=== PATIENT | female | born 1960 | race Caucasian/White ===

== ENCOUNTER 2018-06-27 11:43 | Emergency (ER) | payer MEDICAID ==
[~2018-06-27] VITALS: Ht 160 cm; Wt 117.9 kg
[~2018-06-27 11:43] MED LIST: ASPI81CT95 PO; FERR325E14 PO; GLU500 PO; HYDR25TA32 PO; INSU100S10 SUBQ; LISI-420 PO; LISI20TA2 PO
[2018-06-27 12:04] VITALS: BP 164/64
--- NOTE | 2018-06-27 12:44 | NUR ---
PT AMBULATES TO BED 2
--- NOTE | 2018-06-27 12:58 | NUR ---
PT. CAME INTO THE ED DUE TO R FOOT PAIN X 1 WEEK. PT. HAS 9/10 THROBBING PAIN ON R FOOT S/P FROZEN MEAT FALLING ON HER FOOT ONE WEEK AGO. PT. HAS CAP REFILL LESS THAN 3 SECONDS, SENSATION INTACT. NO BRUISING OR SWELLING NOTED AT THIS TIME. PT ABLE TO AMBULATE AT THIS TIME. ER MD NOTIFIED. SAFETY PRECAUTIONS IMPLEMENTED . FAMILY MEMBER AT BEDSIDE. WILL CONTINUE TO MONITOR.
--- NOTE | 2018-06-27 13:58 | NUR ---
PT. RESTING IN BED, RR EVEN AND UNLABORED. BED IN LOWEST POSITION. WILL CONTINUE TO MONITOR.
[2018-06-27 14:34] VITALS: BP 151/63
== END 2018-06-27 14:34 | disposition home or self-care (01) ==
LOC: MED 11:43
DX: S92.531A Displaced fracture of distal phalanx of right lesser toe(s), initial encounter for closed fracture (principal); E11.9 Type 2 diabetes mellitus without complications; I10 Essential (primary) hypertension; Z79.4 Long term (current) use of insulin; Z79.82 Long term (current) use of aspirin; Z79.899 Other long term (current) drug therapy; W20.8XXA Other cause of strike by thrown, projected or falling object, initial encounter; Y93.89 Activity, other specified; Y92.89 Other specified places as the place of occurrence of the external cause; Y99.8 Other external cause status
CPT/HCPCS: 73630; 99283; 99284

== ENCOUNTER 2019-02-13 14:45 | Emergency (ER) | payer MEDICAID ==
[~2019-02-13] VITALS: Ht 152.4 cm; Wt 95.3 kg
[2019-02-13 15:10] VITALS: BP 164/59
--- NOTE | 2019-02-13 15:14 | NUR ---
PT AMBULATED TO BED 4
--- NOTE | 2019-02-13 15:28 | NUR ---
PATIENT PRESENTS TO ED WITH C/O BILAT HIP PAIN RADIATING DOWN R LEG WORSENING TODAY /10 SHARP, CONTINUOUS. DENIES INJURY, ABLE TO AMBULATE WITH STEADY GAIT. HX---DM, HTN . VSS; PATIENT POSITIONED FOR COMFORT; HOB ELEVATED; BEDRAILS UP X2; BED DOWN. ER MD MADE AWARE OF PT STATUS.
--- NOTE | 2019-02-13 15:50 | NUR ---
Patient being evaluated by physician at bedside.
--- NOTE | 2019-02-13 16:04 | NUR ---
PT IS OFF UNIT FOR XRAY.
--- NOTE | 2019-02-13 16:15 | NUR ---
PT IS BACK FROM X-RAY
[2019-02-13] MEDS ORDERED: KETOROLAC 30 MG/ML VIAL IM ONE (16:20)
[2019-02-13 16:55] VITALS: BP 148/58
--- NOTE | 2019-02-13 16:55 | NUR ---
PT STATED FEELING BETTER, VSS, Written and verbal after care instructions given and explained. Rx of NAPROXEN given. Patient educated on indication of medication including possible reaction and side effects. Opportunity to ask questions provided and answered. ID band removed. Patient advised to follow up with PMD.
== END 2019-02-13 16:55 | disposition home or self-care (01) ==
LOC: MED 14:45
DX: M51.16 Intervertebral disc disorders with radiculopathy, lumbar region (principal); E11.9 Type 2 diabetes mellitus without complications; I10 Essential (primary) hypertension; Z79.4 Long term (current) use of insulin; Z79.82 Long term (current) use of aspirin; Z79.899 Other long term (current) drug therapy
CPT/HCPCS: 72110; 96372; 99283; J1885

== ENCOUNTER 2020-04-25 12:22 | Emergency (ER) | payer MEDICAID ==
[~2020-04-25] VITALS: Ht 167.6 cm; Wt 91.2 kg
[2020-04-25 12:29] VITALS: BP 175/92
--- NOTE | 2020-04-25 12:33 | NUR ---
PT INSTRUCTED TO WAIT IN LOBBY
[2020-04-25] MEDS ORDERED: KETOROLAC 30 MG/ML VIAL IM ONE (13:20)
[2020-04-25] MEDS ORDERED: KETOROLAC 30 MG/ML VIAL IM STA (13:27)
--- NOTE | 2020-04-25 13:37 | NUR ---
CAROL MCKINNON PT BEFORE RN
--- NOTE | 2020-04-25 13:39 | NUR ---
APPLIED JOEY WRAP TO RIGHT ANKLE WITHOUT ANY ISSUES
[2020-04-25 13:50] VITALS: BP 142/89
== END 2020-04-25 13:51 | disposition home or self-care (01) ==
LOC: MED 12:22
DX: M79.671 Pain in right foot (principal)
CPT/HCPCS: 73630; 96372; 99283; J1885; Q0092

== ENCOUNTER 2022-04-26 07:44 | Emergency (ER) | payer MEDICAID ==
[~2022-04-26] VITALS: Ht 145.8 cm; Wt 90.9 kg
[~2022-04-26 07:44] MED LIST changes: -LISI-420 PO; +LISI20TA30 PO
[2022-04-26 07:52] VITALS: BP 184/79
[2022-04-26] MEDS ORDERED: PRED20TA5 PO (10:15)
[2022-04-26] MEDS ORDERED: DIPH25TA53 PO (10:15)
[2022-04-26 10:40] VITALS: BP 142/87
== END 2022-04-26 10:40 | disposition home or self-care (01) ==
LOC: MED 07:44
DX: R21 Rash and other nonspecific skin eruption (principal); E11.9 Type 2 diabetes mellitus without complications; I10 Essential (primary) hypertension; E78.5 Hyperlipidemia, unspecified; Z79.4 Long term (current) use of insulin; Z79.899 Other long term (current) drug therapy; Z98.890 Other specified postprocedural states
CPT/HCPCS: 99283

== ENCOUNTER 2023-07-20 16:55 | Emergency (ER) | payer MEDICAID ==
[~2023-07-20] VITALS: Ht 162.6 cm; Wt 95.3 kg
[~2023-07-20 16:55] MED LIST changes: +DIPH25TA53 PO; +PRED20TA5 PO
[2023-07-20 17:04] VITALS: BP 187/84; PULSE 79; RESP 17; TEMP 97.4; O2SAT 98
[2023-07-20] MEDS ORDERED: KETOROLAC 30 MG/ML VIAL IM ONE (19:25)
[2023-07-20] MEDS ORDERED: HYDROcodone/APAP 5/325 MG 1 TAB TAB PO ONE (19:25)
[2023-07-20] MEDS ORDERED: KETOROLAC 30 MG/ML VIAL ONE (19:40)
[2023-07-20] MEDS ORDERED: HYDROcodone/APAP 5/325 MG 1 TAB TAB ONE (19:40)
[2023-07-20] MEDS ORDERED: IBUP-2213 PO (19:55)
[2023-07-20] MEDS ORDERED: ACET-8905 PO (19:55)
[2023-07-20 20:06] VITALS: BP 156/81; PULSE 84; RESP 17; TEMP 97.4; O2SAT 98
== END 2023-07-20 20:06 | disposition home or self-care (01) ==
LOC: MED 16:55
DX: S83.91XA Sprain of unspecified site of right knee, initial encounter (principal); E11.9 Type 2 diabetes mellitus without complications; I10 Essential (primary) hypertension; Z79.899 Other long term (current) drug therapy; Z79.1 Long term (current) use of non-steroidal anti-inflammatories (NSAID); Z79.4 Long term (current) use of insulin; Z79.82 Long term (current) use of aspirin; W18.40XA Slipping, tripping and stumbling without falling, unspecified, initial encounter; Y93.89 Activity, other specified; Y92.89 Other specified places as the place of occurrence of the external cause; Y99.8 Other external cause status
CPT/HCPCS: 29505; 73562; 96372; 99283; J1885